=== PATIENT | female | born 1955 | race Caucasian/White ===

== ENCOUNTER 2017-04-18 10:22 | Emergency (ER) | payer OTHER ==
[2017-04-18 10:35] VITALS: BP 161/86; BMI 54.8
--- NOTE | 2017-04-18 10:45 | DR.EXTPAIN ---
HPI - Time seen Time seen: 10:45 - PCP Primary Care Physician: Na - HPI Comment HPI Comment: HISTORY BELOW. - Complaint/Symptoms Chief Complaint Doctor Comments: FELL, PAIN RIGHT HIP. RLE PAIN FROM HIP DOWN ALONG WITH CHEST TIMES 2 MONTHS. CHECK FOR DVT 2 MONTHS AGO AND WAS NEGATIVE. PAIN CONTINUES AND CHEST SYMTOMS WORSE PAST 3 DAYS. MOVE TO [place] 3 WEEKS AGO. DO NOT HAVE PCP HERE YET. NO FEVER. Chief Complaint:: PT STATES " I WENT AND FELL THIS AM AND I EASED DOWN TO THE GROUND AND I HAVE BEEN HURTING IN MY RIGHT LEG FROM MY GROIN DOWN AND IN [place] 2 MONTHS AGO I WAS THERE AND AN US WAS DONE AND IT WAS NEG AND THE PAIN IS WORSE WHEN WALKING. - Nurses notes reviewed Nurses Notes Review: Yes - Source History Provided: Patient - Mode of arrival Mode of Arrival: EMS - Timing Onset of Chief Complaint: 03/07/17 - Context History of: None - Associated signs and symptoms Associated Signs and Symptoms: Pain PMH - PMH Past Medical History: Yes Past Medical History: Hypertension Past Medical History Comment: COPD, [place] Past Surgical History: Yes Past Surgical History Comment: STENTS, - Family History History of Family Medical Conditions: Yes Family Medical History: Coronary Artery Disease, Heart Failure - Social History Does patient currently use any type of tobacco product: No Have you used tobacco products in the last 12 months: No Type of Tobacco Use: None Does any household member use tobacco: No Alcohol Use: None Do you use any recreational Drugs:: No Lives With: Family Lives Where: Home - infectious screening In the last 2 months have you had wt loss of >10#?: NO Have you had fever, night sweats or hemotysis?: No Have you traveled outside the country in the last 6 months?: No Isolation: Standard ROS - Review of Systems Constitutional: Weakness, Fatigue. negative: Chills, Fever Eyes: No Symptoms Reported. negative: Eye Pain, Discharge ENTM: Nose Discharge, Nose Congestion. negative: Ear Pain, Throat Pain Respiratoy: Non-Productive Cough, Short of Breath, Wheezing. negative: Productive Cough, Hemoptysis Cardiovascular: Chest Pain, Edema Gastrointestinal/Abdominal: No Symptoms Reported. negative: Constipation, Diarrhea, Nausea, Vomiting Genitourinary: No Symptoms Reported. negative: Dysuria, Frequency, Hematuria Neurological: Headache, Weakness, Dizziness Musculoskeletal: Back Pain, Muscle Pain, Hip, Knee, Ankle Integumentary: Change in Color Hematologic/Lymphatic: Easy Bleeding, Easy Bruising Endocrine: No Symptoms Reported All Other Systems: Reviewed and Negative PE - Vital Signs Vitals: Pulse Rate 73 Respiratory Rate 22 Blood Pressure 161/86 O2 Sat by Pulse Oximetry 95 - General Limitations: No Limitations General Appearance: Alert - Head Head Exam: Normal Inspection - Eyes Eye exam: Normal Appearance - ENT ENT Exam: Normal External Ear Exam - Neck Neck Exam: Trachea Midline - Chest Chest Inspection: Symmetric Chest Wall Rise - Respiratory Respiratory Exam: Normal Lung Sounds Bilat Respiratory Exam: Bilateral Wheezing, Bilateral Rhonchi, Lower Wheezing, Lower Rhonchi - Cardiovascular Cardiovascular Exam: Regular Rate, Normal Rhythm - Abdominal Exam Abdominal Exam: Normal Bowel Sounds, Soft. negative: Tenderness - Extremities Extremities Exam: Tenderness, Joint Swelling - Lower Extremities Hip/Pelvis Exam: Normal Inspection Upper Leg Exam: Tenderness Knee Exam: Tenderness (RT KNEE) Lower Leg Exam: Normal Inspection Ankle Exam: Tenderness, Swelling Foot/Toe Exam: Tenderness Neurovascular/Tendon Exam: Normal Capillary Refill Gait Exam: Not Tested/Not Observed - Back Back Exam: Paraspinal Tenderness - Neurological Neurological Exam: Alert, Oriented X3 - Psychiatric Psychiatric Exam: Anxious - Skin Skin Exam: Erythema MDM - Differential Diagnosis Differential Diagnosis: Contusion, Fracture, Other (DVT, PULMONARY EMBOLISM) Course - Treatment Treatment: SEE ORDERS - Education/Counseling Education/Counseling: Patient, Education Educated On: Treatment, Diagnosis, Needs for Follow Up ROR - Labs Reviewed Laboratory Results Reviewed?: Yes Result Diagrams: 04/18/17 11:02 04/18/17 11:02 Laboratory: WBC 12.7 X10^3/uL (3.6-10.0) H 04/18/17 11:02 RBC 4.09 X10^6/uL (3.5-5.4) 04/18/17 11:02 Hgb 12.9 g/dL (12.0-16.0) 04/18/17 11:02 Hct 39.4 % (36.0-47.0) 04/18/17 11:02 MCV 96.3 fL (80.0-100.0) 04/18/17 11:02 MCH 31.6 pg (27.0-34.0) 04/18/17 11:02 MCHC 32.8 g/dL (33.0-35.0) L 04/18/17 11:02 RDW 14.1 % (11.6-16.5) 04/18/17 11:02 Plt Count 258 X10^3/uL (150.0-450.0) 04/18/17 11:02 MPV 10.1 fL (7.4-11.0) 04/18/17 11:02 Neut % 77.7 % (42.0-75.0) H 04/18/17 11:02 Lymph % 14.1 % (21.0-51.0) L 04/18/17 11:02 [place] % 6.7 % (0.0-13.0) 04/18/17 11:02 Eos % 0.6 % (0.9-2.9) L 04/18/17 11:02 Baso % 0.9 % (0.2-1.0) 04/18/17 11:02 Neut # 9.9 x10^3/uL (2.2-4.8) H 04/18/17 11:02 Lymph # 1.8 X10^3/uL (1.3-2.9) 04/18/17 11:02 [place] # 0.8 x10^3/uL (0.3-0.8) 04/18/17 11:02 Eos # 0.1 x10^3/uL (0.0-0.2) 04/18/17 11:02 Baso # 0.1 X10^3/uL (0.0-0.1) 04/18/17 11:02 Absolute Nucleated RBC 0.0 /100WBC 04/18/17 11:02 D-Dimer 588 ng/mL (0-400) H* 04/18/17 11:02 Sodium 140 mmol/L (136-145) 04/18/17 11:02 Corrected Sodium 141 mmol/L (136-145) 04/18/17 11:02 Potassium 4.0 mmol/L (3.5-5.1) 04/18/17 11:02 Chloride 105 mmol/L (98-107) 04/18/17 11:02 Carbon Dioxide 27.9 mmol/L (21-32) 04/18/17 11:02 BUN 19 mg/dL (7-18) H 04/18/17 11:02 Creatinine 0.82 mg/dL (0.55-1.02) 04/18/17 11:02 Est GFR (MDRD) Af Amer > 60 (>60) 04/18/17 11:02 Est GFR (MDRD) Non-Af > 60 (>60) 04/18/17 11:02 Glucose 126 mg/dL (65-99) H 04/18/17 11:02 Calcium 8.7 mg/dL (8.5-10.1) 04/18/17 11:02 Corrected Calcium TNP 04/18/17 11:02 Total Bilirubin 0.50 mg/dL (0.2-1.0) 04/18/17 11:02 AST 13 Units/L (15-37) L 04/18/17 11:02 ALT 18 Units/L (12-78) 04/18/17 11:02 Alkaline Phosphatase 99 Units/L (46-116) 04/18/17 11:02 Creatine Kinase 24 Units/L (26-192) L 04/18/17 11:02 CK-MB (CK-2) < 1.0 ng/mL (0-4.0) 04/18/17 11:02 CK/CKMB % Calc 4.2 % (<4) 04/18/17 11:02 Troponin I < 0.02 ng/mL (0-1.5) 04/18/17 11:02 B-Natriuretic Peptide 33.7 pg/mL (0-79) 04/18/17 11:02 Total Protein 7.9 g/dL (6.4-8.2) 04/18/17 11:02 Albumin 3.5 g/dL (3.4-5.0) 04/18/17 11:02 Globulin 4.4 g/dL (2.5-4.5) 04/18/17 11:02 Albumin/Globulin Ratio 0.8 Ratio (1.1-2.1) L 04/18/17 11:02 - XRAY XRAY Findings: REPORT DISCUSS WITH PATIENT. - EKG Rhythm: NSR (EKG NOTED) - Diagnosis Discharge Problem: Hip pain Qualifiers: Laterality: right Qualified Code(s): M25.551 - Pain in right hip Chest pain Qualifiers: Chest pain type: other chest pain Qualified Code(s): R07.89 - Other chest pain - Discharge Plan Disposition: 01 HOME, SELF-CARE Condition: Stable Prescriptions: Meloxicam [Mobic] 7.5 mg PO DAILY #15 tablet Prednisone [Prednisone Tab 10 mg] 10 mg PO QAM #10 tab - Follow ups/Referrals Follow ups/Referrals: JOEY,None [Primary Care Provider] - 3 days ANA LEZAMA [STAFF PHYSICIAN] - 3 days - Instructions Instructions: Chest Pain Observation, Hip Pain, Chronic Pain Additional Instructions: RETURN TO ED IF WORSE.
[2017-04-18] MEDS ORDERED: ZOFRAN INJ 4 MG VIAL IM ONE (10:49)
[2017-04-18] MEDS ORDERED: TORADOL 60 MG VIAL IM ONE (10:49)
[2017-04-18] MEDS ORDERED: TORADOL 60 MG VIAL ONE (11:07)
[2017-04-18] MEDS ORDERED: ZOFRAN INJ 4 MG VIAL ONE (11:07)
[2017-04-18 11:29] LABS: BASOPHILS # (AUTO) 0.1 X10^3/uL (0.0-0.1); BASOPHILS % (AUTO) 0.9 % (0.2-1.0); EOSINOPHILS # (AUTO) 0.1 x10^3/uL (0.0-0.2); EOSINOPHILS % (AUTO) 0.6 % (0.9-2.9); HEMATOCRIT 39.4 % (36.0-47.0); HEMOGLOBIN 12.9 g/dL (12.0-16.0); LYMPHOCYTES # (AUTO) 1.8 X10^3/uL (1.3-2.9); LYMPHOCYTES % (AUTO) 14.1 % (21.0-51.0); MEAN CORPUSCULAR HEMOGLOBIN 31.6 pg (27.0-34.0); MEAN CORPUSCULAR HGB CONC 32.8 g/dL (33.0-35.0); MEAN CORPUSCULAR VOLUME 96.3 fL (80.0-100.0); MEAN PLATELET VOLUME 10.1 fL (7.4-11.0); MONOCYTES # (AUTO) 0.8 x10^3/uL (0.3-0.8); MONOCYTES % (AUTO) 6.7 % (0.0-13.0); NEUTROPHILS # (AUTO) 9.9 x10^3/uL (2.2-4.8); NEUTROPHILS % (AUTO) 77.7 % (42.0-75.0); PLATELET COUNT 258 X10^3/uL (150.0-450.0); RED BLOOD COUNT 4.09 X10^6/uL (3.5-5.4); RED CELL DISTRIBUTION WIDTH 14.1 % (11.6-16.5); WHITE BLOOD COUNT 12.7 X10^3/uL (3.6-10.0)
--- NOTE | 2017-04-18 11:29 | RAD ---
History: Fall today with right hip pain Study: AP pelvis and frog-leg view of right hip Comparison: None Findings: There is no fracture or dislocation. The pubic rami are intact. There is hip joint space n arrowing superiorly with moderately severe osteophyte formation. Impression: 1. No evidence for fracture 2. Moderately severe erosive osteoarthritis Reported By:
[2017-04-18 11:40] LABS: BLOOD UREA NITROGEN 19 mg/dL (7-18); CALCIUM 8.7 mg/dL (8.5-10.1); CARBON DIOXIDE 27.9 mmol/L (21-32); CHLORIDE 105 mmol/L (98-107); COR NA(FOR HYPERGLY) 141 mmol/L (136-145); CREATININE 0.82 mg/dL (0.55-1.02); GLUCOSE 126 mg/dL (65-99); SODIUM 140 mmol/L (136-145); TROPONIN I < 0.02 ng/mL (0-1.5); eGFR BLACK RACES > 60 (>60); eGFR NON BLACK RACES > 60 (>60)
[2017-04-18 11:45] LABS: ALANINE AMINOTRANSFERASE 18 Units/L (12-78); ALBUMIN 3.5 g/dL (3.4-5.0); ALKALINE PHOSPHATASE 99 Units/L (46-116); ASPARTATE AMINO TRANSFERASE 13 Units/L (15-37); CKMB % 4.2 % (<4); CREATINE KINASE 24 Units/L (26-192); CREATINE KINASE MB < 1.0 ng/mL (0-4.0); TOTAL PROTEIN 7.9 g/dL (6.4-8.2)
[2017-04-18 11:58] LABS: D DIMER 588 ng/mL (0-400)
--- NOTE | 2017-04-18 12:04 | RAD ---
HISTORY: Fall Study: Single view of the chest Comparison: None Findings: The trachea is midline. The cardiac silhouette is enlarged. The aorta is partially calcified ectati c and tortuous. The lungs are clear without focal infiltrate or effusion. IMPRESSION: 1. Cardiomegaly. Reported By:
[2017-04-18] MEDS ORDERED: NS 100 ML IV 100 ML IV ONE (12:26)
--- NOTE | 2017-04-18 13:15 | VAS ---
HISTORY: Right lower extremity pain Study: Venous Doppler ultrasound of the right lower extremity Comparison: None TECHNIQUE: Multiple burkett scale and color flow Doppler images of the deep venous system were obtaine d of the right lower extremity. FINDINGS: The deep venous system of the right lower extremity was evaluated from the level of the common femor al vein through the popliteal vein. Normal color flow and augmentation can be observed. In additio n, normal compression is seen throughout the deep venous system. IMPRESSION: 1. Negative for DVT. Reported By:
--- NOTE | 2017-04-18 13:29 | CT ---
HISTORY: Elevated D-dimer Study: CT chest with contrast Comparison: None Technique: Multiple axial images of the chest were obtained from the thoracic inlet to the upper abd omen with the administration of IV contrast. Coronal and sagittal three-dimensional reformatted MIP images were also submitted utilizing CTA protocol. Dose reduction techniques including automated exp osure control (AEC) and adjustment of mA and kV were utilized. Findings: The mediastinum does not demonstrate significant pathological lymphadenopathy. There is no pericard ial effusion observed. Atherosclerotic changes are seen within the visualized aorta. No definite well circumscribed focal filling defects are appreciated within the main pulmonary arter ies. Prominence of the pulmonary arteries may reflect pulmonary hypertension. No CT evidence of foca l consolidation, pneumothorax, or pleural effusion is identified. IMPRESSION: 1. No CT evidence of pulmonary embolus is appreciated as noted above. Reported By:
== END 2017-04-18 14:40 | disposition home or self-care (01) ==
LOC: ER 10:22
DX: R07.89 Other chest pain (principal); M25.551 Pain in right hip; I51.7 Cardiomegaly; M15.4 Erosive (osteo)arthritis
CPT/HCPCS: 36415; 71010; 71275; 73501; 80053; 82550; 82553; 83880; 84484; 85025; 85378; 93005; 93010; 93971; 96365; 96372; 99283; A4222; J1885; J2405